=== PATIENT | female | born 1955 | race Caucasian/White ===

== ENCOUNTER → 2020-05-02 08:49 | Outpatient (CLI) | payer OTHER, SELFPAY ==
--- NOTE | ~2020-05-02 | DEXA_ITS ---
Bone Density Report Name: Mulu Cesar Age: 64 Sex: Female Ethnicity: White Date of : 1955 Indication: postmenopausal; screening for osteoporosis; Referring Provider: NABOR QUIJANO Study: Bone densitometry was performed. Exam Date: May 02, 2020 Accession number: [id number] Bone Density: Region BMD T-score Z-score Classification AP Spine (L1-L4) 1.111 0.6 2.4 Normal Femoral Neck (Left) 0.766 -0.7 0.8 Normal Total Hip (Left) 0.797 -1.2 0.1 Osteopenia Femoral Neck (Right) 0.803 -0.4 1.2 Normal Total Hip (Right) 0.863 -0.6 0.7 Normal Total Hip Mean 0.830 -0.9 0.4 Normal World Health Organization criteria for BMD impression classify patients as: Normal (T-score at or above -1.0), Osteopenia (T-score between -1.0 and -2.5), or Osteoporosis (T-score at or below -2.5). 10-year Fracture Risk(1): Major Osteoporotic Fracture 8.0% Hip Fracture 0.5% Reported Risk Factors: [place] (), Neck BMD=0.766, BMI=26.0 (1) FRAX(R) Version 3.08. Fracture probability calculated for an untreated patient. Fracture probability may be lower if the patient has received treatment. Clinical Information Provided by Patient: Has used the following medications: Vitamin D, Calcium Patient maximum height was 63.12 Menopause Age: 40 Drinks caffeinated beverages Onset of menses at age 9 Number of children 0 Impression: The patient has low bone mass, based on the Left Total Hip T-score. The patient has an estimated ten-year risk of hip fracture of 0.5% and an estimated ten-year risk of major fracture of 8%, based on the WHO FRAX algorithm. Discussion: BONE DENSITY IS LOW AT ONE OR MORE SKELETAL SITES. This patient's lowest T-score is low at one or more skeletal sites. It meets the World Health Organization's (WHO) criteria for ?low bone mass? (T-score between -1.0 and -2.5). The patient's 10-year risk of fracture as calculated by FRAX is less than the threshold where pharmacological therapy is recommended by the National Osteoporosis Foundation (NOF). However, all treatment decisions require clinical judgment and consideration of individual patient factors, including patient preferences, comorbidities, previous drug use, risk factors not captured in the FRAX model (e.g., frailty, falls, vitamin D deficiency, increased bone turnover, interval significant decline in bone density) and possible under or overestimation of fracture risk by FRAX. The patient should follow a healthful lifestyle (good nutrition with adequate calcium and vitamin D, and appropriate weight-bearing exercise). Follow-Up: Consider repeating this study in 2 to 3 years to reassess this patient's status, or sooner if there is some new clinical indication. Reported by: DULCE on 05/02/2020 10:10:00 AM.
--- NOTE | ~2020-05-02 | MM_ITS ---
EXAMINATION: MM screening [place] BI w evonne HISTORY: Screening mammogram TECHNIQUE: Craniocaudal and mediolateral oblique 3-D tomosynthesis images were obtained and synthetic 2-D images were generated. CAD analysis was submitted and interpreted. COMPARISON: No prior mammogram is available for comparison at this institution. BREAST PARENCHYMAL COMPOSITION: The breasts are heterogeneously dense, which may obscure small masses . FINDINGS: There is no evidence of suspicious mass, calcification, or architectural distortion to sugg est malignancy in either breast. There has been no suspicious interval change. IMPRESSION: 1. No mammographic evidence of malignancy. 2. Recommend routine screening mammography in one year. BI-RADS Category 1: Negative Reviewed, dictated and finalized at location A.
== END ==
PROVIDERS: PCP Internal Medicine; Visit Provider Internal Medicine
DX: Z12.31 Encounter for screening mammogram for malignant neoplasm of breast (principal); Z78.0 Asymptomatic menopausal state; M85.852 Other specified disorders of bone density and structure, left thigh
CPT/HCPCS: 77063; 77067; 77080

== ENCOUNTER → 2022-03-30 08:46 | Outpatient (CLI) | payer OTHER, SELFPAY ==
--- NOTE | ~2022-03-30 | MM_ITS ---
EXAMINATION: MM screening [place]ot BI w evonne HISTORY: Screening TECHNIQUE: Craniocaudal and mediolateral oblique 3-D tomosynthesis images were obtained and synthetic 2-D images were generated. CAD analysis was submitted and interpreted. COMPARISON: 05/02/2020 BREAST PARENCHYMAL COMPOSITION: The breasts are heterogeneously dense, which may obscure small masses FINDINGS: There is no evidence of suspicious mass, calcification, or architectural distortion to sugg est malignancy in either breast. There has been no suspicious interval change. IMPRESSION: 1. No mammographic evidence of malignancy. 2. Recommend routine screening mammography in one year. BI-RADS Category 1: Negative Reviewed, dictated and finalized at location A.
== END ==
PROVIDERS: PCP Internal Medicine; Visit Provider Internal Medicine
DX: Z12.31 Encounter for screening mammogram for malignant neoplasm of breast (principal)
CPT/HCPCS: 77063; 77067

== ENCOUNTER 2023-10-28 15:05 | Outpatient (CLI) | payer OTHER, SELFPAY ==
--- NOTE | ~2023-10-28 | MM_ITS ---
EXAMINATION: MM screening [place]ot BI w evonne HISTORY: Screening TECHNIQUE: Craniocaudal and mediolateral oblique 3-D tomosynthesis images were obtained and synthetic 2-D images were generated. CAD analysis was submitted and interpreted. COMPARISON: Comparison to multiple prior studies sequentially, with oldest reviewed study dated 05/02. BREAST PARENCHYMAL COMPOSITION: The breasts are heterogeneously dense, which may obscure small masses . FINDINGS: There is no evidence of suspicious mass, calcification, or architectural distortion to sugg est malignancy in either breast. There has been no suspicious interval change. IMPRESSION: 1. No mammographic evidence of malignancy. 2. Recommend routine screening mammography in one year. BI-RADS Category 1: Negative Reviewed, dictated and finalized at location A.
--- NOTE | ~2023-10-28 | DEXA_ITS ---
Bone Density Report Name: BRENDON TAYLOR Age: 67 Sex: Female Ethnicity: White Date of : 1955 Indication: postmenopausal; screening for osteoporosis; height loss; Referring Provider: MARTINE HAAS Study: Bone densitometry was performed. Exam Date: October 28, 2023 Accession number: [id number] Bone Density: Region BMD T-score Z-score Classification AP Spine(L1, L2, L3) 0.913 -1.0 1.1 Normal Femoral Neck (Left) 0.771 -0.7 1.1 Normal Total Hip (Left) 0.792 -1.2 0.3 Osteopenia Femoral Neck (Right) 0.755 -0.8 0.9 Normal Total Hip (Right) 0.817 -1.0 0.5 Normal Total Hip Mean 0.804 -1.1 0.4 Osteopenia World Health Organization criteria for BMD impression classify patients as: Normal (T-score at or above -1.0), Osteopenia (T-score between -1.0 and -2.5), or Osteoporosis (T-score at or below -2.5). 10-year Fracture Risk(1): Major Osteoporotic Fracture 8.5% Hip Fracture 0.8% Reported Risk Factors: [place] (), Neck BMD=0.755, BMI=27.5 (1) FRAX(R) Version 3.08. Fracture probability calculated for an untreated patient. Fracture probability may be lower if the patient has received treatment. Clinical Information Provided by Patient: Has used the following medications: Vitamin D, MULTIPLE Patient maximum height was 63 Menopause Age: 41 Drinks caffeinated beverages Onset of menses at age 8 Number of children 0 Impression: The patient has low bone mass, based on the Left Total Hip T-score. The patient has an estimated ten-year risk of hip fracture of 0.8% and an estimated ten-year risk of major fracture of 8.5%, based on the WHO FRAX algorithm. Discussion: BONE DENSITY IS LOW AT ONE OR MORE SKELETAL SITES. This patient's lowest T-score is low at one or more skeletal sites. It meets the World Health Organization's (WHO) criteria for ?low bone mass? (T-score between -1.0 and -2.5). The patient's 10-year risk of fracture as calculated by FRAX is less than the threshold where pharmacological therapy is recommended by the National Osteoporosis Foundation (NOF). However, all treatment decisions require clinical judgment and consideration of individual patient factors, including patient preferences, comorbidities, previous drug use, risk factors not captured in the FRAX model (e.g., frailty, falls, vitamin D deficiency, increased bone turnover, interval significant decline in bone density) and possible under or overestimation of fracture risk by FRAX. The patient should follow a healthful lifestyle (good nutrition with adequate calcium and vitamin D, and appropriate weight-bearing exercise). Follow-Up: Consider repeating this study in 2 to 3 years to reassess this patient's status, or sooner if there is some new clinical indication. Reported by: DULCE on 11/01/2023 3:35:00 PM.
== END 2023-10-28 15:06 | disposition home or self-care (01) ==
LOC: ANHIMG 15:09
PROVIDERS: PCP Nurse Practitioner Family; Visit Provider Nurse Practitioner Family
DX: Z12.31 Encounter for screening mammogram for malignant neoplasm of breast (principal); M85.89 Other specified disorders of bone density and structure, multiple sites; Z78.0 Asymptomatic menopausal state
CPT/HCPCS: 77063; 77067; 77080

== ENCOUNTER 2024-12-10 09:18 | Outpatient (CLI) | payer OTHER, SELFPAY ==
--- NOTE | ~2024-12-10 | MM_ITS ---
EXAMINATION: MM screening scot BI w evonne HISTORY: Screening TECHNIQUE: Craniocaudal and mediolateral oblique 3-D tomosynthesis images were obtained and synthetic 2-D images were generated. CAD analysis was submitted and interpreted. COMPARISON: Comparison to multiple prior studies sequentially, with oldest reviewed study dated 05/02. BREAST PARENCHYMAL COMPOSITION: Dense: The breasts are heterogeneously dense, which may obscure small masses FINDINGS: There is no evidence of suspicious mass, calcification, or architectural distortion to sugg est malignancy in either breast. There has been no suspicious interval change. IMPRESSION: 1. No mammographic evidence of malignancy. 2. Recommend routine screening mammography in one year. BI-RADS Category 1: Negative Reviewed, dictated and finalized at location A.
--- OUTSIDE RECORDS SUMMARY | 2024-12-10 09:52 | XMS_ITS | Data Portability ---
Author Organization [facility] Address [address] [place] [address] Care Team Providers Care A P Manager Name Role Phone GEORGINA SEPULVEDA [employer] Instructor Assessment No assessment recorded. Plan of Treatment Reminders Order Date Submit Date Provider Last Modified By Organization Details Last Modified Time Details Appointments None recorded. Lab lipid panel, serum 2016 017 si [facility], [address], [place], [address], 7 12:08:45 CMP, serum or plasma 2016 017 [email or web address] [facility], [address], [place], [address], 7 10:11:30 pap, IG + HPV, cervical 2015 016 [facility], [facility] [address], [address], [place], [address], 7 16:13:28 bacterial vaginosis + vaginitis panel, vaginal 2015 016 [facility], [address], [address], [place], [address], 7 20:06:13 urinalysis , dipstick 2015 016 lisa In-Office Order, Internal Use Only DO Not Attach Compendium DO Not Attach Compendium, Do Not Delete/merge, [id number] 6 13:54:37 glycohemog lobin, total, blood 2015 016 ALECIA Martin, [address], [address], [place], [address], 7 14:13:24 TSH, serum or plasma 2015 016 ALECIA Martin, [address], [address], [place], [address], 7 14:13:22 lipid panel, serum 2015 016 ALECIA Martin, [address], [address], [place], [address], 7 14:13:22 CBC 2015 016 ALECIA Martin, [address], [address], [place], [address], 7 14:13:20 CMP, serum or plasma 2015 016 ALECIA Martin, [address], [address], [place], [address], 7 14:13:21 T3, free, serum or plasma 2015 016 ALECIA Martin, [address], [address], [place], [address], 7 14:13:23 T4, free, serum 2015 016 ALECIA Martin, [address], [address], [place], [address], 7 14:13:24 HbA1c (hemoglobi n A1c), blood 2014 015 ALECIA MARTIN, [address], [address], [place], [address], 5 08:46:23 urinalysis , complete 2014 015 ALECIA MARTIN, [address], [address], [place], [address], 5 08:46:23 TSH, serum or plasma 2014 015 ALECIA MARTIN, [address], [address], [place], [address], 5 08:46:24 CBC 2014 015 ALECIA MARTIN, [address], [address], [place], [address], 5 08:46:22 lipid panel, serum 2014 015 ALECIA MARTIN, [address], [address], [place], [address], 5 08:46:23 CMP, serum or plasma 2014 015 [facility]IA MARTIN, [facility] [facility] [address], [address], [place], [address], 5 08:46:22 Referral internal medicine referral 2015 016 [email or web address] Not available 6 16:59:34 behavioral psychother apy referral - anxiety self help classes 2014 Jewel [email or web address] [facility], [address] [place], [address], 5 10:41:17 Procedures None recorded. Surgeries None recorded. Imaging MAMMO, screening, bilateral 2015 016 [facility] ([facility]), [address] [place] [address], [address], 7 14:23:52 bone density 2015 016 [facility] ([facility]), [address] [facility], [place], [address], 7 14:47:04 MAMMO, screening, digital, bilateral 2014 015 Not available 5 10:27:24 bone density study 2014 015 [email or web address] Not available 5 10:27:24 Medication Orders lisinopril 10 mg tablet 2016 017 [facility], [address] [place], [address], 7 12:17:02 Zetia 10 mg tablet 2016 017 [facility], [address] [place], [address], 7 12:17:01 Replens vaginal gel 2015 016 [email or web address] [facility], [address] [place], [address], 7 11:11:55 Patient TargetsNo targets recorded. Patient Instructions Encounter Date Encounter Id Patient Instructions Last Modified By Organization Details Last Modified Time 02/11/2015 [id number] elevated blood pressure: care instructions [email or web address] Not available 02/11/2015 10:48:17 panic attacks: care instructions [email or web address] Not available 02/11/2015 10:49:01 anxiety disorder : care instructions [email or web address] Not available 02/11/2015 10:48:36 learning about anxiety disorders Not available 02/11/2015 10:49:01 depression treatment: care instructions [email or web address] Not available 02/11/2015 10:49:01 learning about stress Not available 02/11/2015 10:49:01 patient will vincent f monitor BP at least twice weekly and record, adhere to low Na diet, increase aerobic activity and follow up as directed. Not available 02/11/2015 10:47:51 Patient will follow up during month for complete yearly physical and health maintenance screening and updates. Patient advised to have dental maintenance q 6 months, eye exam yearly. Women to do BSE monthly, and have a yearly in office breast exam along with mammogram. Men encouraged to do regular testicular self exams monthly. Advised to eat plenty fiber and drink at least 64 oz fluid daily, most of which should be water. Remain physically active with regular aerobic and some weight resistance exercises. Colonoscopy every 7-10 years unless indicated otherwise and FOBT in between years. BDS after age 50. Shingles vaccine after age 55 or if indicated otherwise and yearly flu shots. Td q 10 years. Not available 02/11/2015 10:47:51 08/06/2016 [id number] mammogram: about this test lisa Not available 08/06/2016 13:54:37 bladder training : care instructions [email or web address] Not available 08/06/2016 13:50:33 kegel exercises: care instructions [email or web address] Not available 08/06/2016 13:50:33 Stress Incontinence: Care Instructions [email or web address] Not available 08/06/2016 13:50:33 well visit, wome n 50 to 65: care instructions [email or web address] Not available 08/06/2016 13:10:46 09/01/2016 [id number] elevated blood pressure: care instructions [email or web address] Not available 09/01/2016 12:08:45 high cholesterol : care instructions si Not available 09/01/2016 12:08:45 She already has set up with counciling session. [email or web address] Not available 09/01/2016 12:08:19 Reason for Referral Behavioral Psychotherapy Ref erral for Anxiety anxiety/non medicine approach for management anxiety self help classes Referring Physician: Paul Augustin, Family Medicine, Encounter Date: 03/11/2015 Internal Medicine Referral f or Hypertensive disorder Referring Physician: Georgina Sepulveda, BOTTLING ATTENDANT, Encounter Date: 08/06/2016 Results Created Date Observation Date Name Description Value Unit Range Abnormal Flag Note LastModifiedBy Organization Detail LastModifiedTime 08/06/20 16 08/06/2016 urina lysis , dipst ick Leukocytes Negati ve Not Available In-Office Order Internal Use Only DO Not Attach Compendium DO Not Attach Compendium, Do Not Delete/merge, [id number] 08/06/2016 12:24:53 08/06/20 16 08/06/2016 urina lysis , dipst ick Nitrite negati ve Not Available In-Office Order Internal Use Only DO Not Attach Compendium DO Not Attach Compendium, Do Not Delete/merge, 08/06/2016 12:24:53 08/06/20 16 08/06/2016 urina lysis , dipst ick Urobilinogen .2 Not Available In-Of fice Order Internal Use Only DO Not Attach Compendium DO Not Attach Compendium, Do Not Delete/merge, 08/06/2016 12:24:53 08/06/20 16 08/06/2016 urina lysis , dipst ick Protein Negati ve Not Available In-Office Order Internal Use Only DO Not Attach Compendium DO Not Attach Compendium, Do Not Delete/merge, 08/06/2016 12:24:53 08/06/20 16 08/06/2016 urina lysis , dipst ick pH 7.5 Not Available In-Office Order Internal Use Only DO Not Attach Compendium DO Not Attach Compendium, Do Not Delete/merge, 08/06/2016 12:24:53 08/06/20 16 08/06/2016 urina lysis , dipst ick Blood Non-He molyze d: Trace Not Available In-Office Order Internal Use Only DO Not Attach Compendium DO Not Attach Compendium, Do Not Delete/merge, 08/06/2016 12:24:53 08/06/20 16 08/06/2016 urina lysis , dipst ick Specific [place] 1.020 Not Available In-Off ice Order Internal Use Only DO Not Attach Compendium DO Not Attach Compendium, Do Not Delete/merge, 08/06/2016 12:24:53 08/06/20 16 08/06/2016 urina lysis , dipst ick Ketone Negati ve Not Available In-Office Order Internal Use Only DO Not Attach Compendium DO Not Attach Compendium, Do Not Delete/merge, [id number] 08/06/2016 12:24:53 08/06/20 16 08/06/2016 urina lysis , dipst ick Bilirubin Negati ve Not Available In-Office Order Internal Use Only DO Not Attach Compendium DO Not Attach Compendium, Do Not Delete/merge, [id number] 08/06/2016 12:24:53 08/06/20 16 08/06/2016 urina lysis , dipst ick Glucose Negati ve Not Available In-Office Order Internal Use Only DO Not Attach Compendium DO Not Attach Compendium, Do Not Delete/merge, [id number] 08/06/2016 12:24:53 02/12/20 15 02/12/2015 CBC WBC 6.0 x10e3 /uL 3.4-10 .8 Not Available [facility] [address] [facility], [place], [address], 02/12/2015 08:46:22 02/12/20 15 02/12/2015 CBC RBC 5.11 x10e6 /uL 3.77-5 .28 Not Available [facility] [address] [facility], [place], [address], 02/12/2015 08:46:22 02/12/20 15 02/12/2015 CBC hemoglobin 13.4 g/dL 11.1-1 5.9 Not Available [facility] [address] [facility], [place], [address], 02/12/2015 08:46:22 02/12/20 15 02/12/2015 CBC hematocrit 40.4 % 34.0-4 6.6 Not Available [facility] [address] [facility], [place], [address], 02/12/2015 08:46:22 02/12/20 15 02/12/2015 CBC MCV 79 fL 79-97 Not Available [facility] [address] [facility], [place], [address], 02/12/2015 08:46:22 02/12/20 15 02/12/2015 CBC MCH 26.2 pg 26.6-3 3.0 low Not Available [facility]) [address] [place], [address], 02/12/2015 08:46:22 02/12/20 15 02/12/2015 CBC MCHC 33.2 g/dL 31.5-3 5.7 Not Available [facility] [address] [place], [address], 02/12/2015 08:46:22 02/12/20 15 02/12/2015 CBC RDW 13.7 % 12.3-1 5.4 Not Available [facility] [address] [facility], [place], [address], 02/12/2015 08:46:22 02/12/20 15 02/12/2015 CBC platelets 372 x10e3 /uL 150-37 9 Not Available [facility] [address] [place], [address], 02/12/2015 08:46:22 02/12/20 15 02/12/2015 CBC neutrophils 57 % Not Avai lable [facility] [address] [place], [address], 02/12/2015 08:46:22 02/12/2002/12/2015 CBC lymphs 32 % Not Available [facility] [address] [place], [address], 02/12/2015 08:46:22 02/12/2002/12/2015 CBC monocytes 7 % Not Availa ble [facility] [address] [place], [address], 02/12/2015 08:46:22 02/12/20 15 02/12/2015 CBC eos 3 % Not Available [facility] [address] [place], [address], 02/12/2015 08:46:22 02/12/20 15 02/12/2015 CBC basos 1 % Not Available [facility] [address] [place], [address], 02/12/2015 08:46:22 02/12/20 15 02/12/2015 CBC immature cells [employer]ER REPA[employer] SUPERVISOR Not Available [facility] [address] [facility], [address], 02/12/2015 08:46:22 02/12/20 15 02/12/2015 CBC neutrophils (absolute) 3.5 x10e3 /uL 1.4-7. 0 Not Available [facility] [address] [facility], [address], 02/12/2015 08:46:22 02/12/20 15 02/12/2015 CBC lymphs (absolute) 2.0 x10e3 /uL 0.7-3. 1 Not Available [facility] [address] [facility], [address], 02/12/2015 08:46:22 02/12/20 15 02/12/2015 CBC monocytes(ab solute) 0.4 x10e3 /uL 0.1-0. 9 Not Available [facility] [address] [place], [address], 02/12/2015 08:46:22 02/12/2002/12/2015 CBC eos (absolute) 0.2 x10e3 /uL 0.0-0. 4 Not Available [facility] [address] [facility], [address], 02/12/2015 08:46:22 02/12/20 15 02/12/2015 CBC baso (absolute) 0.0 x10e3 /uL 0.0-0. 2 Not Available [facility] [address] [facility], [address], 02/12/2015 08:46:22 02/12/20 15 02/12/2015 CBC immature granulocytes 0 % Not Available [facility] [address] [facility] [place], [address], 02/12/2015 08:46:22 02/12/20 15 02/12/2015 CBC immature grans (abs) 0.0 x10e3 /uL 0.0-0. 1 Not Available [facility] [address] [facility], [address], 02/12/2015 08:46:22 02/12/2002/12/2015 CBC NRBC [employer]ER [employer] SUPERVISOR Not Available [facility] [address] [place], [address], 02/12/2015 08:46:22 02/12/2002/12/2015 CBC hematology comments: METER REPA[employer] SUPERVISOR Not Available [facility] [address] [facility], [address], 02/12/2015 08:46:22 02/12/2002/12/2015 CMP, serum or plasm a glucose, serum 103 mg/dL 65-99 high Not Available [facility] [address] [place], [address], 02/12/2015 08:46:22 02/12/2002/12/2015 CMP, serum or plasm a BUN 14 mg/dL 8-27 Not Available [facility] [address] [place], [address], 02/12/2015 08:46:22 02/12/2002/12/2015 CMP, serum or plasm a creatinine, serum 0.71 mg/dL 0.57-1 .00 Not Available [facility] ([place] [facility]) [address] [facility], [address], 02/12/2015 08:46:22 02/12/20 15 02/12/2015 CMP, serum or plasm a eGFR if nonafricn AM 92 mL/mi n/1.7 3 >59 Not Available [facility] [address] [facility], [place], [address], 02/12/2015 08:46:22 02/12/20 15 02/12/2015 CMP, serum or plasm a eGFR if africn AM 106 mL/mi n/1.7 3 >59 Not Available [facility] [address] [place], [address], 02/12/2015 08:46:22 02/12/20 15 02/12/2015 CMP, serum or plasm a BUN/creatini ne ratio 20 11-26 Not Available [facility] [address] [place], [address], 02/12/2015 08:46:22 02/12/20 15 02/12/2015 CMP, serum or plasm a sodium, serum 140 mmol/ L 134-14 4 Not Available [facility] [address] [place], [address], 02/12/2015 08:46:22 02/12/20 15 02/12/2015 CMP, serum or plasm a potassium, serum 4.9 mmol/ L 3.5-5. 2 Not Available [facility] [address] [place], [address], 02/12/2015 08:46:22 02/12/2002/12/2015 CMP, serum or plasm a chloride, serum 97 mmol/ L 97-108 Not Available [facility] [address] [place], [address], 02/12/2015 08:46:22 02/12/2002/12/2015 CMP, serum or plasm a carbon dioxide, total 25 mmol/ L 18-29 Not Available [facility] [address] [place], [address], 02/12/2015 08:46:22 02/12/2002/12/2015 CMP, serum or plasm a calcium, serum 9.7 mg/dL 8.7-10 .3 Not Available [facility] [address] [place], [address], 02/12/2015 08:46:22 02/12/2002/12/2015 CMP, serum or plasm a protein, total, serum 8.2 g/dL 6.0-8. 5 Not Available [facility] [address] [place], [address], 02/12/2015 08:46:22 02/12/2002/12/2015 CMP, serum or plasm a albumin, serum 4.6 g/dL 3.6-4. 8 Not Available [facility] [address] [place], [address], 02/12/2015 08:46:22 02/12/2002/12/2015 CMP, serum or plasm a globulin, total 3.6 g/dL 1.5-4. 5 Not Available [facility] [address] [place], [address], 02/12/2015 08:46:22 02/12/2002/12/2015 CMP, serum or plasm a A/G ratio 1.3 1.1-2. 5 Not Available [facility] [address] [place], [address], 02/12/2015 08:46:22 02/12/2002/12/2015 CMP, serum or plasm a bilirubin, total 0.4 mg/dL 0.0-1. 2 Not Available [facility] [address] [place], [address], 02/12/2015 08:46:22 02/12/20 15 02/12/2015 CMP, serum or plasm a alkaline phosphatase, S 114 IU/L 39-117 Not Available [facility] [address] [place], [address], 02/12/2015 08:46:22 02/12/20 15 02/12/2015 CMP, serum or plasm a AST (SGOT) 18 IU/L 0-40 Not Available [facility] [address] [place], [address], 02/12/2015 08:46:22 02/12/20 15 02/12/2015 CMP, serum or plasm a ALT (SGPT) 18 IU/L 0-32 Not Available [facility] [address] [facility], [place], [address], 02/12/2015 08:46:22 02/12/20 15 02/12/2015 urina lysis , compl ete specific gravity 1.011 1.005- 1.030 Not Available [facility] [address] [place], [address], 02/12/2015 08:46:22 02/12/20 15 02/12/2015 urina lysis , compl ete pH 7.0 5.0-7. 5 Not Available [facility] [address] [place], [address], 02/12/2015 08:46:22 02/12/2002/12/2015 urina lysis , compl ete urine-color YELLOW yellow Not Available [facility] [address] [place], [address], 02/12/2015 08:46:22 02/12/20 15 02/12/2015 urina lysis , compl ete appearance CLEAR clear Not Available [facility] [address] [place], [address], 02/12/2015 08:46:22 02/12/20 15 02/12/2015 urina lysis , compl ete WBC esterase 1+ negati ve abnormal Not Available [facility] [address] [place], [address], 02/12/2015 08:46:22 02/12/20 15 02/12/2015 urina lysis , compl ete protein NEGATI VE negati ve/tra ce Not Available [facility] [address] [place], [address], 02/12/2015 08:46:22 02/12/20 15 02/12/2015 urina lysis , compl ete glucose NEGATI VE negati ve Not Available [facility] [address] [place], [address], 02/12/2015 08:46:22 02/12/20 15 02/12/2015 urina lysis , compl ete glucose reflex [employer]PA[employer] SUPERVISOR Not Available [facility] [address] [place], [address], 02/12/2015 08:46:22 02/12/20 15 02/12/2015 urina lysis , compl ete ketones NEGATI VE negati ve Not Available [facility] [address] [place], [address], 02/12/2015 08:46:22 02/12/2002/12/2015 urina lysis , compl ete occult blood 1+ negati ve abnormal Not Available [facility] [address] [place], [address], 02/12/2015 08:46:22 02/12/2002/12/2015 urina lysis , compl ete bilirubin NEGATI VE negati ve Not Available [facility] [address] [place], [address], 02/12/2015 08:46:22 02/12/20 15 02/12/2015 urina lysis , compl ete urobilinogen ,semi-qn 0.2 mg/dL 0.0-1. 9 Not Available [facility] [address] [place], [address], 02/12/2015 08:46:22 02/12/20 15 02/12/2015 urina lysis , compl ete nitrite, urine NEGATI VE negati ve Not Available [facility]) [address] [place], [address], 02/12/2015 08:46:22 02/12/20 15 02/12/2015 urina lysis , compl ete microscopic examination SEE BELOW: MICRO SCOPI C WAS INDIC ATED AND WAS PERFO RMED. Not Available [facility] [address] [place], [address], 02/12/2015 08:46:22 02/12/20 15 02/12/2015 urina lysis , compl ete WBC 0-5 /hpf 0 - 5 Not Available [facility] [address] [place], [address], 02/12/2015 08:46:22 02/12/20 15 02/12/2015 urina lysis , compl ete RBC 0-2 /hpf 0 - 2 Not Available [facility] [address] [place], [address], 02/12/2015 08:46:22 02/12/20 15 02/12/2015 urina lysis , compl ete epithelial cells (non renal) 0-10 /hpf 0 - 10 Not Available [facility] [address] [place], [address], 02/12/2015 08:46:22 02/12/20 15 02/12/2015 urina lysis , compl ete epithelial cells (renal) METER [employer]PA[employer] SUPERVISOR Not Available [facility] [address], [place], [address], 02/12/2015 08:46:22 02/12/20 15 02/12/2015 urina lysis , compl ete casts [employer] REPA[employer] SUPERVISOR Not Available [facility] [address] [facility], [place], [address], 02/12/2015 08:46:22 02/12/20 15 02/12/2015 urina lysis , compl ete cast type [employer]ER REPA[employer] SUPERVISOR Not Available [facility] [address] [facility], [place], [address], 02/12/2015 08:46:22 02/12/20 15 02/12/2015 urina lysis , compl ete crystals METER REPA[employer] SUPERVISOR Not Available [facility] [address] [facility], [place], [address], 02/12/2015 08:46:22 02/12/20 15 02/12/2015 urina lysis , compl ete crystal type METER REPAIR SH[employer] SUPERVISOR Not Available [facility] [address] [facility], [place], [address], 02/12/2015 08:46:22 02/12/20 15 02/12/2015 urina lysis , compl ete mucus threads METER REPA[employer] SUPERVISOR Not Available [facility] [address] [facility], [place], [address], 02/12/2015 08:46:22 02/12/20 15 02/12/2015 urina lysis , compl ete bacteria FEW none seen/f ew Not Available [facility] [address] [facility], [place], [address], 02/12/2015 08:46:22 02/12/20 15 02/12/2015 urina lysis , compl ete yeast MET[employer] REPA[employer] SUPERVISOR Not Available [facility] [address] [facility], [place], [address], 02/12/2015 08:46:22 02/12/20 15 02/12/2015 urina lysis , compl ete trichomonas METER REPA[employer] SUPERVISOR Not Available [facility] [address] [place], [address], 02/12/2015 08:46:22 02/12/20 15 02/12/2015 urina lysis , compl ete comment METER REPAIR [employer] SUPERVISOR Not Available [facility] [address] [place], [address], 02/12/2015 08:46:22 02/12/20 15 02/12/2015 lipid panel , serum cholesterol, total 289 mg/dL 100-19 9 high Not Available [facility] ([facility] [address] [place], [address], 02/12/2015 08:46:23 02/12/20 15 02/12/2015 lipid panel , serum triglyceride s 214 mg/dL 0-149 high Not Available [facility] [address] [place], [address], 02/12/2015 08:46:23 02/12/20 15 02/12/2015 lipid panel , serum HDL cholesterol 64 mg/dL >39 ACCOR DING TO ATP-I II GUIDE LINES , HDL-C >59 MG/DL IS CONSI DERED A NEGAT PARDEEP RISK FACTO R FOR CHD. Not Available [facility] ([facility] [address] [place], [address], 02/12/2015 08:46:23 02/12/20 15 02/12/2015 lipid panel , serum VLDL cholesterol mitzi 43 mg/dL 5-40 high Not Available [facility] [address] [place], [address], 02/12/2015 08:46:23 02/12/20 15 02/12/2015 lipid panel , serum LDL cholesterol calc 182 mg/dL 0-99 high Not Available [facility] [address] [facility] [place], [address], 02/12/2015 08:46:23 02/12/20 15 02/12/2015 lipid panel , serum non-HDL cholesterol 225 mg/dL 0-129 high Not Available [facility] [address] [facility], [place], [address], 02/12/2015 08:46:23 02/12/20 15 02/12/2015 lipid panel , serum comment: COMMEN T POSSI BLE FAMIL IAL HYPER CORY STERO LEMIA . FH SHOUL D BE SUSPE CTED WHEN FASTI NG LDL CORY STERO L IS ABOVE 189 MG/DL OR NON-H DL CORY STERO L IS ABOVE 219 MG/DL . A FAMIL Y HISTO RY OF HIGH CORY STERO L AND HEART DISEA SE IN 1ST DEGRE E RELAT DENIZ JULIANNE D BE COLLE CTED. J CLIN LIPID OL 2011; [phone] Not Available [facility]) [address] [facility], [place], [address], 02/12/2015 08:46:23 02/12/20 15 02/12/2015 HbA1c (hemo globi n A1c), blood hemoglobin A1C 5.9 % 4.8-5. 6 high INCRE ASED RISK FOR DIABE VALENTE: 5.7 - 6.4 DIABE VALENTE: >6.4 GLYCE MARY CONTR OL FOR ADULT S WITH DIABE VALENTE: <7.0 Not Available [facility] [address] [facility], [place], [address], 02/12/2015 08:46:23 02/12/20 15 02/12/2015 TSH, serum or plasm a TSH 2.260 uIU/m L 0.450- 4.500 Not Available [facility] [address] [facility], [place], [place], [address], 02/12/2015 08:46:24 08/06/20 16 08/09/2016 bacte rial vagin osis + vagin itis panel , vagin al atopobium vaginae LOW - 0 score Not Available [facility] [address] [facility], [place], [address], 08/09/2016 20:06:12 08/06/20 16 08/09/2016 bacte rial vagin osis + vagin itis panel , vagin al bvab 2 LOW - 0 score Not Available [facility] [address] [facility], [place], [address], 08/09/2016 20:06:12 08/06/20 16 08/09/2016 bacte rial vagin osis + vagin itis panel , vagin al megasphaera 1 LOW - 0 score CALCU LATE TOTAL SCORE BY CHASITY Henry THE 3 INDIV IDUAL BACTE RIAL VAGIN OSIS (BV) MARKE R SCORE S TOGET HER. TOTAL SCORE IS INTER PRETE D FOLLO WS: TOTAL SCORE 0-1: INDIC ATES THE ABSEN CE OF BV. TOTAL SCORE 2: INDET ERMIN ATE FOR BV. ADDIT IONAL CLINI MITZI DATA SHOUL D BE EVALU ATED TO ESTAB GEMINI A DIAGN OSIS. TOTAL SCORE 3-6: INDIC ATES THE PRESE NCE OF BV. THIS TEST WAS DEVEL OPED AND ITS PERFO RMANC E DARCI CTERI STICS DETER MINED BY [facility]. IT HAS NOT BEEN CLEAR ED OR APPRO SUSHILA BY THE FOOD AND DRUG ADMIN ISTRA TION. THE FDA HAS DETER MINED THAT SUCH CLEAR ANCE OR APPRO NELSON IS NOT NECES SUDHIR. Not Available [facility] [address] [facility], [place], [address], 08/09/2016 20:06:12 08/06/20 16 08/09/2016 bacte rial vagin osis + vagin itis panel , vagin al tasneem albicans, JEANNE NEGATI VE negati ve Not Available [facility] [address] [facility], [place], [address], 08/09/2016 20:06:12 08/06/20 16 08/09/2016 bacte rial vagin osis + vagin itis panel , vagin al tasneem glabrata, JEANNE NEGATI VE negati ve THIS TEST WAS DEVEL OPED AND ITS PERFO RMANC E DARCI CTERI STICS DETER MINED BY [facility]. IT HAS NOT BEEN CLEAR ED OR APPRO SUSHILA BY THE FOOD AND DRUG ADMIN ISTRA TION. THE FDA HAS DETER MINED THAT SUCH CLEAR ANCE OR APPRO NELSON IS NOT NECES SUDHIR. Not Available [facility] [address] [place], [address], 08/09/2016 20:06:12 08/06/20 16 08/09/2016 bacte rial vagin osis + vagin itis panel , vagin al trich vag by JEANNE NEGATI VE negati ve Not Available [facility] [address] [place], [address], 08/09/2016 20:06:12 08/06/20 16 08/09/2016 bacte rial vagin osis + vagin itis panel , vagin al chlamydia trachomatis, JEANNE NEGATI VE negati ve Not Available [facility] [address] [place], [address], 08/09/2016 20:06:12 08/06/20 16 08/09/2016 bacte rial vagin osis + vagin itis panel , vagin al neisseria gonorrhoeae, JEANNE NEGATI VE negati ve Not Available [facility] [address] [place], [address], 08/09/2016 20:06:12 08/06/20 16 08/11/2016 pap, IG + HPV, cervi mitzi diagnosis: COMMEN T NEGAT PARDEEP FOR INTRA EPITH ELIAL LESIO N AND MALIG KRISTIAN . REACT PARDEEP CELLU LAR HERRERA ES AND/O R REPAI R ARE PRESE NT. Not Available [facility] [address] [place], [address], 08/11/2016 16:13:28 08/06/20 16 08/11/2016 pap, IG + HPV, cervi mitzi specimen adequacy: LAURA Leonard SATIS FACTO RY FOR EVALU ATION . ENDOC ERVIC AL AND/O R SQUAM OUS METAP LASTI C CELLS (ENDO CERVI MITZI COMPO NENT) ARE PRESE NT. Not Available [facility] [address] [place], [address], 08/11/2016 16:13:28 08/06/20 16 08/11/2016 pap, IG + HPV, cervi mitzi clinician provided ICD10: LAURA Leonard Z01.4 19 Not Available [facility] [address] [place], [address], 08/11/2016 16:13:28 08/06/20 16 08/11/2016 pap, IG + HPV, cervi mitzi performed by: LAURA NOVAK , CYTOT YANIRA CRISOSTOMO T (ASCP ) Not Available [facility] [address] [place], [address], 08/11/2016 16:13:28 08/06/20 16 08/11/2016 pap, IG + HPV, cervi mitzi electronical ly signed by: LAURA Khan MD, PATHO LOGIS T Not Available [facility] [address] [place], [address], 08/11/2016 16:13:28 08/06/20 16 08/11/2016 pap, IG + HPV, cervi mitzi . . Not Available [facility] [address] [place], [address], 08/11/2016 16:13:28 08/06/20 16 08/11/2016 pap, IG + HPV, cervi mitzi note: LAURA Leonard THE PAP SMEAR IS A SCREE ANNE MARIE TEST DESRILEY BEE TO AID IN THE DETEC TION OF AILEEN LIGNA NT AND MALIG NANT CONDI TIONS OF THE UTERI NE CERVI X. IT IS NOT A DIAGN OSTIC PROCE DURE AND SHOUL D NOT BE USED THE SOLE MEANS OF DETEC TING CERVI MITZI CANCE R. BOTH FALSE -POSI TIVE AND FALSE -NEGA TIVE REPOR TS DO OCCUR . Not Available [facility] [address] [place], [address], 08/11/2016 16:13:28 08/06/20 16 08/11/2016 pap, IG + HPV, cervi mitzi test methodology: COMMEN T THIS LIQUI D BASED THINP REP(R ) PAP TEST WAS SCREE BEE WITH THE USE OF AN IMAGE GUIDE Angela Anand. Not Available [facility] [address] [place], [address], 08/11/2016 16:13:28 08/06/20 16 08/11/2016 pap, IG + HPV, cervi mitzi HPV aptima NEGATI VE negati ve THIS TEST DETEC TS FOURT EEN HIGH- RISK HPV TYPES (16/1 8/31/ 33/35 /39/4 5/ 51/52 /56/5 8/59/ 66/68 ) WITHO UT DIFFE RENTI ATION . Not Available [facility] [address] [place], [address], 08/11/2016 16:13:28 08/17/19 17 08/18/2016 CBC WBC 5.9 x10e3 /uL 3.4-10 .8 Not Available [facility] [address] [place], [address], 08/19/2016 14:13:20 08/17/19 17 08/18/2016 CBC RBC 4.86 x10e6 /uL 3.77-5 .28 Not Available [facility] [address] [place], [address], 08/19/2016 14:13:20 08/17/19 17 08/18/2016 CBC hemoglobin 13.4 g/dL 11.1-1 5.9 Not Available [facility] [address] [place], [address], 08/19/2016 14:13:20 08/17/19 17 08/18/2016 CBC hematocrit 39.3 % 34.0-4 6.6 Not Available [facility] [address] [place], [address], 08/19/2016 14:13:20 08/17/19 17 08/18/2016 CBC MCV 81 fL 79-97 Not Available [facility] [address] [place], [address], 08/19/2016 14:13:20 08/17/19 17 08/18/2016 CBC MCH 27.6 pg 26.6-3 3.0 Not Available [facility] [address] [place], [address], 08/19/2016 14:13:20 08/17/19 17 08/18/2016 CBC MCHC 34.1 g/dL 31.5-3 5.7 Not Available [facility] [address] [place], [address], 08/19/2016 14:13:20 08/17/19 17 08/18/2016 CBC RDW 13.6 % 12.3-1 5.4 Not Available [facility] [address] [place], [address], 08/19/2016 14:13:20 08/17/19 17 08/18/2016 CBC platelets 349 x10e3 /uL 150-37 9 Not Available [facility] [address] [place], [address], 08/19/2016 14:13:20 08/17/19 17 08/18/2016 CBC neutrophils 55 % Not Avai lable [facility] [address] [facility], [place], [address], 08/19/2016 14:13:20 08/17/19 17 08/18/2016 CBC lymphs 34 % Not Available [facility] [address] [facility], [place], [address], 08/19/2016 14:13:20 08/17/19 17 08/18/2016 CBC monocytes 7 % Not Availa ble [facility] [address] [facility], [place], [address], 08/19/2016 14:13:20 08/17/19 17 08/18/2016 CBC eos 3 % Not Available [facility] [address] [facility], [place], [address], 08/19/2016 14:13:20 08/17/19 17 08/18/2016 CBC basos 1 % Not Available [facility] [address] [facility], [place], [address], 08/19/2016 14:13:20 08/17/19 17 08/18/2016 CBC immature cells METER REPA[employer]PERVISOR Not Available [facility] [address] [facility], [place], [address], 08/19/2016 14:13:20 08/17/19 17 08/18/2016 CBC neutrophils (absolute) 3.3 x10e3 /uL 1.4-7. 0 Not Available [facility] [address] [facility], [place], [address], 08/19/2016 14:13:20 08/17/19 17 08/18/2016 CBC lymphs (absolute) 2.0 x10e3 /uL 0.7-3. 1 Not Available [facility] [address] [place], [address], 08/19/2016 14:13:20 08/17/19 17 08/18/2016 CBC monocytes(ab solute) 0.4 x10e3 /uL 0.1-0. 9 Not Available [facility] [address] [place], [address], 08/19/2016 14:13:20 08/17/19 17 08/18/2016 CBC eos (absolute) 0.2 x10e3 /uL 0.0-0. 4 Not Available [facility] [address] [place], [address], 08/19/2016 14:13:20 08/17/19 17 08/18/2016 CBC baso (absolute) 0.1 x10e3 /uL 0.0-0. 2 Not Available [facility] [address] [facility], [place], [address], 08/19/2016 14:13:20 08/17/19 17 08/18/2016 CBC immature granulocytes 0 % Not Available [facility] [address] [place], [address], 08/19/2016 14:13:20 08/17/19 17 08/18/2016 CBC immature grans (abs) 0.0 x10e3 /uL 0.0-0. 1 Not Available [facility] [address] [facility], [place], [address], 08/19/2016 14:13:20 08/17/19 17 08/18/2016 CBC NRBC [employer]ER [employer]PA[employer] SUPERVISOR Not Available [facility] [address] [place], [address], 08/19/2016 14:13:20 08/17/1908/18/2016 CBC hematology comments: METER REPA[employer] SUPER[employer]OR Not Available [facility] [address] [facility], [place], [address], 08/19/2016 14:13:20 08/17/19 17 08/18/2016 CMP, serum or plasm a glucose, serum 97 mg/dL 65-99 Not Available [facility] [address] [place], [address], 08/19/2016 14:13:21 08/17/19 17 08/18/2016 CMP, serum or plasm a BUN 14 mg/dL 8-27 Not Available [facility] [address] [place], [address], 08/19/2016 14:13:21 08/17/19 17 08/18/2016 CMP, serum or plasm a creatinine, serum 0.66 mg/dL 0.57-1 .00 Not Available [facility] [address] [place], [address], 08/19/2016 14:13:21 08/17/19 17 08/18/2016 CMP, serum or plasm a eGFR if nonafricn AM 95 mL/mi n/1.7 3 >59 Not Available [facility] [address] [place], [address], 08/19/2016 14:13:21 08/17/19 17 08/18/2016 CMP, serum or plasm a eGFR if africn AM 109 mL/mi n/1.7 3 >59 Not Available [facility] [address] [place], [address], 08/19/2016 14:13:21 08/17/19 17 08/18/2016 CMP, serum or plasm a BUN/creatini ne ratio 21 11-26 Not Available [facility] [address] [place], [address], 08/19/2016 14:13:21 08/17/19 17 08/18/2016 CMP, serum or plasm a sodium, serum 141 mmol/ L 134-14 4 Not Available [facility] [address] [place], [address], 08/19/2016 14:13:21 08/17/19 17 08/18/2016 CMP, serum or plasm a potassium, serum 4.5 mmol/ L 3.5-5. 2 Not Available [facility]) [address] [place] [address], [address], 08/19/2016 14:13:21 08/17/19 17 08/18/2016 CMP, serum or plasm a chloride, serum 101 mmol/ L 96-106 Not Available [facility] [address] [place], [address], 08/19/2016 14:13:21 08/17/19 17 08/18/2016 CMP, serum or plasm a carbon dioxide, total 24 mmol/ L 18-29 Not Available [facility] [address] [place], [address], 08/19/2016 14:13:08/17/19 17 08/18/2016 CMP, serum or plasm a calcium, serum 9.5 mg/dL 8.7-10 .3 Not Available [facility] [address] [place], [address], 08/19/2016 14:13:21 08/17/19 17 08/18/2016 CMP, serum or plasm a protein, total, serum 7.9 g/dL 6.0-8. 5 Not Available [facility] [address] [place], [address], 08/19/2016 14:13:08/17/19 17 08/18/2016 CMP, serum or plasm a albumin, serum 4.5 g/dL 3.6-4. 8 Not Available [facility]) [address] [place] [address], [address], 08/19/2016 14:13:21 08/17/19 17 08/18/2016 CMP, serum or plasm a globulin, total 3.4 g/dL 1.5-4. 5 Not Available [facility] [address] [facility], [place], [address], 08/19/2016 14:13:21 08/17/19 17 08/18/2016 CMP, serum or plasm a A/G ratio 1.3 1.1-2. 5 Not Available [facility] [address] [place], [address], 08/19/2016 14:13:21 08/17/19 17 08/18/2016 CMP, serum or plasm a bilirubin, total 0.4 mg/dL 0.0-1. 2 Not Available [facility] [address] [place], [address], 08/19/2016 14:13:21 08/17/19 17 08/18/2016 CMP, serum or plasm a alkaline phosphatase, S 89 IU/L 39-117 Not Available [facility] [address] [facility], [place], [address], 08/19/2016 14:13:21 08/17/19 17 08/18/2016 CMP, serum or plasm a AST (SGOT) 18 IU/L 0-40 Not Available [facility] [address] [facility], [place], [address], 08/19/2016 14:13:21 08/17/19 17 08/18/2016 CMP, serum or plasm a ALT (SGPT) 17 IU/L 0-32 Not Available [facility] [address] [place], [address], 08/19/2016 14:13:21 08/17/1908/18/2016 lipid panel , serum cholesterol, total 198 mg/dL 100-19 9 Not Available [facility] [address] [place], [address], 08/19/2016 14:13:08/17/19 17 08/18/2016 lipid panel , serum triglyceride s 160 mg/dL 0-149 above high normal Not Available [facility] [address] [place], [address], 08/19/2016 14:13:22 08/17/19 17 08/18/2016 lipid panel , serum HDL cholesterol 76 mg/dL >39 Not Available [facility] [address] [place], [address], 08/19/2016 14:13:22 08/17/19 17 08/18/2016 lipid panel , serum VLDL cholesterol mitzi 32 mg/dL 5-40 Not Available [facility] [address] [place], [address], 08/19/2016 14:13:22 08/17/19 17 08/18/2016 lipid panel , serum LDL cholesterol calc 90 mg/dL 0-99 Not Available [facility] [address] [place], [address], 08/19/2016 14:13:22 08/17/1908/18/2016 lipid panel , serum comment: [employer] SUPER[employer]OR Not Available [facility] [address] [place], [address], 08/19/2016 14:13:22 08/17/19 17 08/19/2016 TSH, serum or plasm a TSH-icma 1.6 uu/mL REFER ENCE RANGE : PUBER MARCY CHILD HARPAL AND ADULT S: 0.5 - 4.8 Not Available [facility] [address] [facility], [place], [address], 08/19/2016 14:13:22 08/17/19 17 08/19/2016 T3, free, serum or plasm a free T-3 3.0 pg/mL REFER ENCE RANGE : >=20Y : 2.0 - 4.4 Not Available [facility] [address] [place], [address], 08/19/2016 14:13:23 08/17/19 17 08/18/2016 HbA1c (hemo globi n A1c), blood hemoglobin A1C 5.9 % 4.8-5. 6 above high normal PRE-D IABET ES: 5.7 - 6.4 DIABE VALENTE: >6.4 GLYCE MARY CONTR OL FOR ADULT S WITH DIABE VALENTE: <7.0 Not Available [facility] [address] [facility], [place], [address], 08/19/2016 14:13:23 08/17/19 17 08/18/2016 T4, free, serum T4,free(dire ct) 1.11 NG/dL 0.82-1 .77 Not Available [facility] [address] [facility], [place], [address], 08/19/2016 14:13:24 03/07/20 15 03/07/2015 MAMMO , scree anne marie, digit al, bilat eral No observ ation record ed. [email or web address] (Imaging) [address] [place], [address], 03/11/2015 11:15:19 03/10/20 15 03/10/2015 bone densi ty study No observ ation record ed. [address] (Imaging) [address] [place], [address], 03/11/2015 11:15:19 04/24/20 15 04/23/2015 imagi ng/di agnos tic resul t No observ ation record ed. [email or web address] Not Available 04/08 15:20:08 04/24/20 15 04/23/2015 imagi ng/di agnos tic resul t No observ ation record ed. [email or web address] Not Available 04/08 15:20:09 08/18/19 17 08/18/2016 DEXA No observ ation record ed. [email or web address] [facility] [address] [place], [address], 09/29/2016 12:54:26 08/18/19 17 08/18/2016 bone densi ty No observ ation record ed. [email or web address] [place] [address] [address] [place], [address], 08/18/2016 15:19:26 09/01/19 17 08/31/2016 MAMMO , scree anne marie, bilat eral No observ ation record ed. [email or web address] [place] [address] ([employer]) [address] [place], [address], 09/29/2016 12:54:50 09/01/19 17 08/31/2016 MAMMO , scree anne marie, bilat eral No observ ation record ed. [email or web address] [facility] [address] [place], [address], 09/02/2016 12:20:15 Result Notes None recorded. Problems Name Problem SNOMED Code Status Onset Date Resolution Date Notes Provider Name and Address Organization Details Recorded Time Anxiety 20402259 Active Paul Augustin null, [place] - [facility] 5 11:15:18 Increased blood pressure 47052152 Active Paul Augustin [place], [place] [facility] 5 11:15:18 Acute urinary tract infection 333345273 Active Paul Augustin null, [facility] 5 17:44:00 Hyperlipidemia 07006105 Active Paul Augustin null, [place] [facility] 5 17:44:00 Problem Notes None recorded. Procedures Surgical History Date Name Laterality Status Provider Name and Address Organization Details Recorded Time 6 Date of Last Pap Smear completed BERTA Brennan [facility] 08/06/2016 12:01:45 5 Most Recent Mammogram completed BERTA Brennan [facility] 08/06/2016 12:02:43 Imaging Results Imaging Date Name Status LastModified by [facility] Details LastModified Time 03/07/2015 MAMMO, screening, digital, bilateral completed [email or web address] [place] [address] (Imaging) [address] [place], [address], 03/11/2015 11:15:19 03/10/2015 bone density study completed [address] (Imaging) [address] [place], [address], 03/11/2015 11:15:19 04/23/2015 imaging/diagno stic result [email or web address] [id number] Information not available 04/25/2015 15:20:08 04/23/2015 imaging/diagno stic result completed [email or web address] [id number] Information not available 04/25/2015 15:20:09 08/18/2016 DEXA completed [address] [place], [address], 09/29/2016 12:54:26 08/18/2016 bone density completed [address] [place], [address], 08/18/2016 15:19:26 08/31/2016 MAMMO, screening, bilateral completed [address] ([employer]) [address] [place], [address], 09/29/2016 12:54:50 08/31/2016 MAMMO, screening, [email or web address] [address] [place], [address], 09/02/2016 12:20:15 Procedure Notes None recorded. Medical Equipment None Reported. Allergies No known drug allergies Medications Name Sig Start Date Stop Date Status Note LastModified by Organization Details LastModified Time pravastatin 40 mg tablet Take 1 tablet every day by oral route in the evening. 09/01 completed Not Available Not Available Not Available amlodipine 5 mg tablet Take 1 tablet every day by oral route for 30 days. active Not Available Not Available No t Available Macrobid 100 mg capsule Take 1 capsule every 12 hours by oral route. 03/11 completed Not Available Not Available Not Available lisinopril 10 mg tablet Take 1 tablet every day by oral route as directed for 30 days. active Not Available Not Available No t Available Replens vaginal gel 09/01 completed Not Available Not Available Not Available pravastatin 20 mg tablet TAKE ONE TABLET DAILY active Not Available Not Available No t Available metoprolol succinate ER 25 mg tablet,exte nded release 24 hr 09/01 completed Not Available Not Available Not Available Zetia 10 mg tablet Take 1 tablet every day by oral route at dinner for 30 days. 2016 active Not Available Not Available Not Avai lable Vesicare 5 mg tablet 09/01 completed Not Available Not Available Not Available Myrbetriq 25 mg tablet,exte nded release 09/01 completed Not Available Not Available Not Available Vitals Date Recorded Respiratory rate Body weight Body height Body temperature Heart rate Body mass index (BMI) Systolic blood pressure Diastolic blood pressure Provider Name and Address Organization Details Last Updated DateTime 5 18 /min 62310.9 6394 g 160.02 cm 98.6 [degF] 80 /min 28.7 kg/m2 150 mm[Hg] 100 mm[Hg] Aubree Sullivan MA [place] - [facility] 5 10:08:19 Date Recorded Respiratory rate Body weight Body height Body temperature Heart rate Body mass index (BMI) Systolic blood pressure Diastolic blood pressure Provider Name and Address Organization Details Last Updated DateTime 5 18 /min 94607.2 65884 g 160.02 cm 98.6 [degF] 68 /min 27.8 kg/m2 138 mm[Hg] 86 mm[Hg] Aubree Sullivan [place] - [facility] 5 11:00:26 Date Recorded Body height Body weight Body mass index (BMI) Systolic blood pressure Diastolic blood pressure Provider Name and Address Organization Details Last Updated DateTime 08/06/2016 160.02 cm 20762.15 g 29.1 kg/m2 164 mm[Hg] 92 mm[Hg] Nahomi Mcdaniels [place] - [facility] 6 12:10:38 Date Recorded Body height Body weight Body mass index (BMI) Body temperature Oxygen saturation Oxygen saturation in Arterial blood by Pulse oximetry Heart rate Systolic blood pressure Diastolic blood pressure Provider Name and Address Organization Details Last Updated DateTime 7 159.39 cm 31943.7 6 g 29.7 kg/m2 97.7 [degF] 95 % 95 % 90 /min 178 mm[Hg] 82 mm[Hg] Adi Hudson [place] - [facility] 7 11:20:34 Social History Question Answer Notes LastModified by Organizat ion Details LastModified Time Tobacco Smoking Status Never Smoker Aubree Sullivan MA null, [place] - [place] 02/11/2015 10:08:19 Do You Have An Advance Directive? No Information not available 08/06/2016 What Is Your Level Of Alcohol Consumption? Occasional [email or web address] Information not available 02/11/2015 Is Blood Transfusion Acceptable In An Emergency? Yes Information not available 08/06/2016 What Is Your Level Of Caffeine Consumption? Moderate Information not available 08/06/2016 How Much Tobacco Do You Chew? None Information not available 08/06/2016 Are You Currently Employed? No Information not available 08/06/2016 What Type Of Diet Are You Following? REGULAR Information not available 08/06/2016 Which Illicit Or Recreational Drugs Have You Used? None Information not available 08/06/2016 Education 12 Information no t available 08/06/2016 Live Alone Or With Others? With Others [email or web address] Information not available 02/11/2015 How Many Children Do You Have? 0 [email or web address] Information not available 02/11/2015 Performs Monthly Self-breast Exam? Yes Information no t available 08/06/2016 Do You Use Protection During Sex? Always Information not available 08/06/2016 What Is Your Relationship Status? Information not available 08/06/2016 Seat Belts Used Routinely Yes Information not available 08/06/2016 Are You Sexually Active? No Information not available 08/06/2016 Smoke Alarm In Home Yes [email or web address] Information not available 02/11/2015 General Stress Level Low Information not available 08/06/2016 Do You Use Sunscreen Routinely? Yes [email or web address] Information not available 02/11/2015 Sex: Unknown Functional Status Question Answer Note LastModified by Organization D etails LastModified Time Are you able to care for yourself? Yes [email or web address] Information not available 02/11/2015 What is your exercise level? Moderate Information not available 08/06/2016 Mental Status None recorded. Family History Relationship Description Onset Age of this Age Resolved Age Notes LastModified by Organization Details LastModified Time Mother Dementia 79 Not availab le 08/06/2016 11:59:22 Mother Hypertensive disorder [email or web address] Not available 09/01 11:13:26 Medical History Condition Response Other N High Blood Pressure Y Breast Cancer N Thyroid Problems N Kidney or Bladder Problems N GI Problems N Depression N Blood Clots N Lung Disease N Acne N Breast Problem N Eating Disorder N Anemia N Anesthesia Complications N Headaches/Migraines N Anxiety Disorder N Diabetes N Ovarian Cancer N Muscle, Joint, or Bone Problems N Blood Transfusions N Seizures/Epilepsy N Polyps N Infertility N Acid Reflux (GERD) N Cancer N Abuse/Domestic Violence N Asthma N Endometriosis N High Cholesterol Y Hepatitis N Liver Disease N Heart Disease N Pre-Eclampsia N Osteoporosis N Gynecological History Statement/Question Response Abnormal Pap N STIs/STDs N HPV Vaccine N Current Control Method None Most Recent Mammogram 08/08/2014 If Post Menopausal, Age at Menopause 38 Sexually Active? N Date of Last Pap Smear 08/06/2016 Sexual Problems? Y LMP Unknown Desired Control Method None Obstetrics History GPAL:G 0 P 0 0 0 0 Type Value Multiple Births 0 Full Term 0 Induced 0 Spontaneous 0 Premature 0 Living 0 Ectopics 0 Total 0 Past Encounters Encounter ID Performer Location Encounter Start Date Encounter Closed Date Diagnosis/Indication Diagnosis SNOMED-CT Code Diagnosis ICD10 Code Diagnosis Note [id number] MD Alphonso Zabala (Fam Med) [address] [place] [address] 02/11/2015 09:38:32 02/11/2015 11:07:48 Anxiety [id number] Increased blood pressure [id number] Adult [facility] th examination [id number] MD Alphonso Zabala (Fam Med) [address] [place] [address] 03/11/2015 10:56:16 03/11/2015 12:21:53 Increased blood pressure [id number] Anxiety [id number] MD Salud Brown (BOTTLING ATTENDANT) [address] [place] [address] 08/06/2016 11:08:16 08/06/2016 16:20:43 Gynecologic examination [id number] Z01.419 Screening mammography 24 075595 Z12.31 Postmenopausal state 764 20592 Z78.0 Screening for osteoporosis [id number] Z13.820 Vaginal dryness 35496012 N89.8 Hypertensive disorder 38 190513 I10 PATIENT TO ER. SHE REFUSED. SHE SAY SHE WILL MAKE AN APPOINTMEN T WITH PCP. COUNSELED ABOUT RISK OF STROKE, HEART ATTACK, CEREBRAL HEMORRHAGE . SHE VERBALIZED UNDERSTAND ING. SHE SAYS ITS FROM ANXIETY. ADVISED NURSE TO CALL PCP DOWN STAIRS AND GET HER IN TODAY WITH PCP. Female str ess incontinence [id number] N39.3 [id number] MD Salud Guy (Adult Med) [address] [place] [address] 09/01/2016 10:40:45 09/01/2016 17:14:53 Increased blood pressure 71911268 R03.0 Hyperlipidemia 25904134 E78.5 Anxiety 98303306 F41.9 Health Concerns Section Related Observation LastModified by Organization Detai ls LastModified Time None Recorded Concern Status LastModified by Organization Details LastModified Time None Recorded Advance Directives Directive N: Payers Encounter Date Sequence Insurance Name Policy Number Policy Obrien Covered Member ID Obrien Member ID Guarantor Name 02/11/2015 1 [facility] PRIOR TO 02/05/2021 (MEDICAID REPLACEMENT - HMO) Mulu Cesar [id number] Mulu Cesar 03/11/2015 1 [facility] PRIOR TO 02/05/2021 (MEDICAID REPLACEMENT - HMO) Mulu Cesar [id number] Mulu Cesar 08/06/2016 1 [facility] PRIOR TO 02/05/2021 (MEDICAID REPLACEMENT - HMO) Mulu Cesar [id number] Mulu Cesar 09/01/2016 1 [facility] PRIOR TO 02/05/2021 (MEDICAID REPLACEMENT - HMO) Mulu Cesar [id number] Mulujomar Cesar Notes Date Note Type Note Provider Name and Address Organization Details Recorded Time 03/11/2015 text/html here to follow u p on elevated BP Paul martinez [facility] 03/11/2015 11:16:22 08/06/2016 text/html Annual GYNReported bypatient.History :no gynecologic complaints Menstrual cycle:menopause at age 46 Urinary symptoms:No hematuria;Inconti nence;Stress incontinence; mild - modearte Vulva:No genital lesion Vagina:Normal vaginal discharge Breast:No breast pain; No breast lump; No nipple discharge Sexual complaints:No sexual complaints; No pain during intercourse; Normal libido Menopausal Symptoms:No menopausal symptoms; Normal vaginal lubrication Psychological symptoms:No depression; No anxiety; No PMDD Preventive measures:Encourag e self breast examination; Encourage regular exercise; Encourage no tobacco use; Encourage regular mammograms starting age 40; Needs to schedule mammogram; also counseled about calcium intake and advised to start over the counter calcium treatment. Georgina Sepulveda MD Attn: Accounting,[address] [place], [address], [facility] 08/06/2016 13:50:54 OBGyn Episode No OBEpisode recorded.
--- OUTSIDE RECORDS SUMMARY | 2024-12-10 09:52 | XMS_ITS | CONTINUITY OF CARE DOCUMENT ---
Author Name kwabena yuan Address Unknown Organization [facility] Address [address] [place] [address] Phone [phone] Care Team Providers Care Research Group Director Name Role Phone Luis GOODWIN, Janie Unavailable SUJATA GREENE MD Unavailable SUJATA GREENE MD Unavailable PROBLEMS Condition Status Date Provider Notes HTN essential active Janie Smith MD Dyslipidemia active Lexi Christiansen RN Anxiety disorder active Janie Smith MD Chest pain-type to be determined active Teri Smith MD Palpitations active Janie Smith MD ENCOUNTERS Date Type Provider Location Encounter Diag nosis - In-person encounter Office Visit Janie Smith MD [place] [facility] - In-person encounter Office Visit Janie Smith MD [place] [facility] HTN essentialDyslipidemiaAnxiety disorderChest pain-type to be determinedPalpitations VITAL SIGNS Date Observation Value Provider blood pressure, diastolic 80 mm[Hg] Me annette Bray blood pressure, systolic 145 mm[Hg] Jennifer Bray pulse rate 92 /min Nayely Bray oxygen saturation, oximetry 98 % Nayely Bray respiratory rate E&M 15 /min Nayely Bray Body Mass Index (Ratio) 27.28 kg/m2 Colette Bray weight E&M 154 [lb_av] Nayely Bray blood pressure, diastolic 98 mm[Hg] Marcel Lara blood pressure, systolic 177 mm[Hg] Lisbeth Lara Body Mass Index (Ratio) 27.67 kg/m2 Lexi Lara pulse rate 96 /min [facility] oxygen saturation, oximetry 97 % [facility] Lara respiratory rate E&M 18 /min Kareen Lara height E&M 63 [in_i] [facility] Nolasco kennediashwini weight E&M 156.2 [lb_av] [facility] gonsalves ALLERGIES No Known Drug Allergies HISTORY OF MEDICATION USE Medication Status Instructions Dates Provider Indications Com ments METOPROLOL SUCCINATE ER 25 MG ORAL TABLET EXTENDED RELEASE 24 HOUR completed one tab. daily 2 - 3 Nayely Bray MULTIVITAMINS ORAL CAPSULE active ONE TAB. DAILY [facility] Fangenson VITAMIN B-12 1000 MCG ORAL TABLET active One tablet daily Em[facility] Fangenson OMEGA-3 FISH OIL 1000 MG ORAL CAPSULE active One tab. daily Emory Fangenson PRAVASTATIN SODIUM 20 MG ORAL TABLET active ONE TAB. DAILY [facility] Laar SOCIAL HISTORY Date Observation Value Provider social history E&M Smoking Histo ry: Eugene encarnacion has never smoked. Janie Smith MD social history reviewed E&M revi ewed - no changes required Janie Smith MD smoking status Never smoker Nayely Cindy roberts social history E&M S moking History: Eugene encarnacion has never smoked. Janie Smith MD social history reviewed E&M revi ewed - no changes required Janie Smith MD smoking status Never smoker [facility] Arias FAMILY HISTORY Family Member Condition Mother Family History of Hy pertension: INSURANCE PROVIDERS Payer name Policy type / Coverage type [employer] ID [employer] MEDICAID (2) Medicaid [id number] TREATMENT PLAN Date Name Performer Cardiology:Chest narinder n resolved.Excersise stress perfusion was normal.Echo shows normal LV systolic function.Patient reassured. Janie Smith MD Cardiology:No medications. Jamal Smith MD Cardiology:on Pravastatin. Jamal Smith MD Cardiology:Will get the monitor analysed.Off beta blockers. Janie Smith MD Cardiology:Chest narinder n resolved.Excersise stress perusion was normal.Echo shows normal LV systolic function.Patient reassured. Janie Smith MD Cardiology:Not on medications. Kika Smith MD Cardiology Janie Miller Cardiology:Chest narinder n resolved.Excersise stress perusion was normal.Patient reassured. Janie Smith MD new Janie Miller new:Intolerant to hi gher dose of Pravastatin. Will reduce it to Pravastatin 20 mg daily. Janie Smith MD new:Blood pressure t gilberto is elevated. Started on metoprolol succinate 25 mg daily. Janie Smith MD new:Seems atypical. Will arrange a stress test. Janie Smith MD new:Will arrange a telesentry mo nitor. Janie Smith MD Date Name STR - Nuclear Mobile Cardiac Tele Complete Echo HISTORY OF PROCEDURES Procedure Date Procedure Name Provider Procedure Notes S tatus EKG Janie Smith MD complet ed Stress EKG Anderson Reynolds MD compl eted Cardiolite, 2 units Anderson Reynolds MD completed SPECT Images Anderson Reynolds MD com pleted EKG Janie Smith MD complet ed
== END 2024-12-10 09:19 | disposition home or self-care (01) ==
LOC: ANHIMG 09:20
PROVIDERS: PCP Nurse Practitioner Family; Visit Provider Nurse Practitioner Family
DX: Z12.31 Encounter for screening mammogram for malignant neoplasm of breast (principal)
CPT/HCPCS: 77063; 77067